=== PATIENT | female | born 1950 | race Caucasian/White ===

== ENCOUNTER 2019-04-20 11:06 | Emergency (ER) | payer OTHER ==
[~2019-04-20] VITALS: Ht 167.6 cm; Wt 49.9 kg
[~2019-04-20 11:06] MED LIST: ZOFRAN4 MG ORAL
--- NOTE | 2019-04-20 11:30 | NUR ---
ED Nurse Note: Patient walked into ER due to body ache, migraine. AAO x4, VSS at this time skin is dry warm to touch.
[2019-04-20 11:35] VITALS: BP 163/80
[2019-04-20] MEDS ORDERED: Tylenol #3 tab (300mg/30mg) ORAL ONE (12:00)
[2019-04-20] MEDS ORDERED: FIORICET1 EA ORAL (12:43)
[2019-04-20] MEDS ORDERED: ACETAMINOPHEN-1 EAC1 ORAL (12:43)
[2019-04-20 12:52] VITALS: BP 163/80
--- NOTE | 2019-04-20 12:52 | NUR ---
ED Nurse Note: Pt cleared by health care Provider for discharge. DC instructions/prescription was given and explained to pt and verbalized understanding of teachings. All medical deviecs such as ID band removed. Pt is AAO x4, ambulatory and left with all personal belongings.
--- NOTE | 2019-04-22 15:11 | Emergency Room Report ---
History of Present Illness General Chief Complaint: General Complaint Source: Patient Present Illness HPI 68-year-old female presents ED for evaluation. Complaining of generalized body aches and migraine. States she has chronic history of body aches migraine. Has had multiple broken bones in the past. States that [place]. Does not have a PMD yet. States that she is looking for a new pain management doctor. Pain is throbbing, 7 out of 10, nonradiating. Denies photophobia or blurry vision. Denies nausea or vomiting. Denies any neck stiffness. No other aggravating relieving factors. Denies any other associated symptoms Allergies: Coded Allergies: ASPIRIN (Verified Allergy, Unknown, 04/20/19) IBUPROFEN (Verified Allergy, Unknown, 02/13/16) Patient History Past Medical History: HTN Past Surgical History: none Pertinent Family History: none Social History: Denies: smoking, alcohol use, drug use Now: No Immunizations: UTD Reviewed Nursing Documentation: PMH: Agreed; PSxH: Agreed Nursing Documentation-PMH Past Medical History: No History, Except For Hx Hypertension: Yes Review of Systems All Other Systems: negative except mentioned in HPI Physical Exam Vital Signs Date Time Temp Pulse Resp B/P (MAP) Pulse Ox O2 Delivery O2 Flow Rate FiO2 04/20/19 11:24 97.7 87 16 163/80 (107) 97 Room Air Sp02 EP Interpretation: reviewed, normal General Appearance: no apparent distress, alert, GCS 15, non-toxic Head: normocephalic, atraumatic Eyes: bilateral eye normal inspection, bilateral eye PERRL ENT: hearing grossly normal, normal pharynx, no angioedema, normal voice Neck: full range of motion, supple, no meningismus, supple/symm/no masses Respiratory: chest non-tender, lungs clear, normal breath sounds, speaking full sentences Cardiovascular #1: regular rate, rhythm, no edema Cardiovascular #2: 2+ carotid (R), 2+ carotid (L), 2+ radial (R), 2+ radial (L) , 2+ dorsalis pedis (R), 2+ dorsalis pedis (L) Gastrointestinal: normal bowel sounds, non tender, soft, non-distended, no guarding, no rebound Rectal: deferred Genitourinary: normal inspection, no CVA tenderness Musculoskeletal: back normal, gait/station normal, normal range of motion, non- tender Neurologic: alert, oriented x3, responsive, motor strength/tone normal, sensory intact, speech normal Psychiatric: judgement/insight normal, memory normal, mood/affect normal, no suicidal/homicidal ideation Reflexes: 3+ bicep (R), 3+ bicep (L), 3+ tricep (R), 3+ tricep (L), 3+ knee (R) , 3+ knee (L) Lymphatic: no adenopathy Medical Decision Making Homeless Attestation I, The treating physician Dr. Avina, have assessed and agrees that patient is medically stable for discharge to an outpatient disposition. Diagnostic Impression: Primary Impression: Chronic pain Qualified Codes: G89.29 - Other chronic pain Additional Impression: Migraine Qualified Codes: G43.909 - Migraine, unspecified, not intractable, without status migrainosus ER Course Hospital Course 68 yo F presents with headache, bodyaches Differential diagnoses include: tension headache, migraine, dehydration, intracranial bleed Clinical course Patient placed on stretcher. After initial history, exam reveals a elderly female in no acute distress. No nuchal rigidity. 5 out of 5 motor strength in all extremities. I reviewed cures and patient has multiple narcotic prescriptions filled. I explained this to the patient. Explained that I can provide her with a short course of Tylenol 3 and Fioricet. Patient states she does not have a PMD and will provide referrals. Homeless checklist completed i. I feel this is a highly complex case requiring extensive working including EKG/Rhythm strip, Xray/CT/US, Blood/urine lab work, repeat exams while in ED, and administration of strong opiates/narcotics for pain control, admission to hospital or close patient follow up. Diagnosis - chronic pain, migraine stable and discharged to home. f/up with PMD. return to ED if symptoms recur/ worsen. Last Vital Signs Date Time Temp Pulse Resp B/P (MAP) Pulse Ox O2 Delivery O2 Flow Rate FiO2 04/20/19 12:52 97.7 16 163/80 97 Room Air 04/20/19 11:35 87 Status: improved Disposition: HOME, SELF-CARE Condition: Stable Scripts Acetamin/Butalbital/Caffeine* (FIORICET*) 1 Ea Tab 1 TAB ORAL Q6H, #15 TAB 0 Refills Prov: Meliton Avina MD 04/20/19 Acetaminophen With Codeine (T#3) (TYLENOL #3 TAB*) Y Tab 1 TAB ORAL Q8H PRN for For Pain, #12 TAB Prov: Meliton Avina MD 04/20/19 Referrals: NOT CHOSEN IPA/,REFERRING [facility] Patient Instructions: Migraine Headache, [id number], Chronic Pain Meliton Avina MD Apr 22, 2019 15:11
== END 2019-04-20 12:52 | disposition home or self-care (01) ==
LOC: EMR 12:04
DX: G43.909 Migraine, unspecified, not intractable, without status migrainosus (principal); G89.29 Other chronic pain; I10 Essential (primary) hypertension; Z88.6 Allergy status to analgesic agent
CPT/HCPCS: 99282

== ENCOUNTER → 2019-05-06 | Emergency (ER) | payer MEDICARE, OTHER ==
[~2019-05-06] VITALS: Ht 157.5 cm; Wt 54.4 kg
[~2019-05-06] MED LIST changes: +ACETAMINOPHEN-1 EAC1 ORAL; +BENADRYL25 MG ORAL; +DiphenhydrAMINE 50mg/ml Inj IVP ONE; +FIORICET1 EA ORAL; +MAALOX MAXIMUM355 M1 PO; +Metoclopramide 10mg/2ml Inj IVP ONE; +REGLAN10 MG ORAL; +TYLENOL325 MG ORAL
--- NOTE | 2019-05-06 18:34 | Emergency Room Report ---
History of Present Illness General Chief Complaint: Abdominal Pain Source: Patient Present Illness HPI Patient is complaining about abdominal pain. This been going for day and a half. She states this happens when she runs out of pain medication. She has had some vomiting. There is no coffee grounds or blood. She denies any diarrhea at the moment. The pain is severe at this time. She has been evaluated multiple times for abdominal pain like this. She cannot tell me the diagnosis. She denies any fevers or chills. There is no dysuria. No sore throat, chest pain, palpitations, shortness of breath, joint pain, rashes, depression visual changes, headache. She walks with a walker. In the past she has had problems with pedal edema. Denies calf tenderness. She states she is having difficulty with her private physicians. She was evaluated here April 22. She was complaining about body aches and migraine. When evaluated it was found that she had multiple narcotic prescriptions. Short course of Tylenol No. 3 and Fioricet were prescribed. Allergies: Coded Allergies: ASPIRIN (Verified Allergy, Unknown, 04/20/19) IBUPROFEN (Verified Allergy, Unknown, 02/13/16) Patient History Past Medical History: see triage record, old chart reviewed Past Surgical History: other - Left hip surgery Social History: Reports: smoking Social History Narrative Homeless Last Menstrual Period: n/a Reviewed Nursing Documentation: PMH: Agreed; PSxH: Agreed Nursing Documentation-PMH Past Medical History: No History, Except For Hx Hypertension: Yes Review of Systems All Other Systems: negative except mentioned in HPI Physical Exam Vital Signs Date Time Temp Pulse Resp B/P (MAP) Pulse Ox O2 Delivery O2 Flow Rate FiO2 05/06/19 17:24 98.2 95 18 110/63 (79) 98 Room Air Sp02 EP Interpretation: reviewed, normal General Appearance: well appearing, no apparent distress - Anxious, GCS 15 Head: normocephalic, atraumatic Eyes: bilateral eye normal inspection, bilateral eye PERRL, bilateral eye EOMI ENT: normal pharynx, moist mucus membranes Neck: supple Respiratory: chest non-tender, lungs clear, normal breath sounds Cardiovascular #1: regular rate, rhythm, edema - Trace bilaterally Cardiovascular #2: 2+ radial (R) Gastrointestinal: normal inspection, normal bowel sounds, soft, no mass, non- distended, no guarding, no rebound, tenderness - Reported diffuse Genitourinary: no CVA tenderness Musculoskeletal: back normal, gait/station normal - With walker, normal range of motion, no calf tenderness Neurologic: alert, oriented x3, grossly normal Psychiatric: mood/affect normal - Slightly anxious, no suicidal/homicidal ideation Skin: other - Venous disease Medical Decision Making Homeless Attestation I, The treating physician Dr. Fernandez, have assessed and agree that patient is medically stable for discharge to an outpatient disposition. Diagnostic Impression: Primary Impression: Abdominal pain Qualified Codes: R10.84 - Generalized abdominal pain Additional Impressions: Chronic pain Qualified Codes: G89.29 - Other chronic pain Opiate dependence Qualified Codes: F11.29 - Opioid dependence with unspecified opioid-induced disorder Hypokalemia ER Course She presents with worsened epigastric and abdominal pain with a history of chronic abdominal pain. Differential includes acute myocardial infarctions, gastritis, pancreatitis, gastroenteritis, diverticulitis, UTI amongst others. The patient will be evaluated with EKG, chest x-ray, abdominal film and labs. At this time she has a nonsurgical abdomen. She will be treated with metoclopramide, Pepcid and Benadryl. She will also receive IV hydration. EKG no injury. Chest x-ray unremarkable. White count normal. Minimal anemia. Sodium minimally elevated. Potassium slightly low. Urinalysis clear. Tox screen positive for barbiturates. Patient sleeping with a soft abdomen. Discussed test findings with patient and the need to follow-up with her doctors. She is pressuring to get pain medication. No medical emergency at this time. Patient stable for outpatient observation and treatment. Laboratory Tests Test 05/06/19 18:23 05/06/19 19:24 White Blood Count 4.6 K/UL (4.8-10.8) L Red Blood Count 3.82 M/UL (4.20-5.40) L Hemoglobin 12.3 G/DL (12.0-16.0) Hematocrit 34.1 % (37.0-47.0) L Mean Corpuscular Volume 89 FL (80-99) Mean Corpuscular Hemoglobin 32.1 PG (27.0-31.0) H Mean Corpuscular Hemoglobin Concent 35.9 G/DL (32.0-36.0) Red Cell Distribution Width 10.6 % (11.6-14.8) L Platelet Count 281 K/UL (150-450) Mean Platelet Volume 5.6 FL (6.5-10.1) L Neutrophils (%) (Auto) 57.3 % (45.0-75.0) Lymphocytes (%) (Auto) 30.2 % (20.0-45.0) Monocytes (%) (Auto) 8.4 % (1.0-10.0) Eosinophils (%) (Auto) 2.8 % (0.0-3.0) Basophils (%) (Auto) 1.2 % (0.0-2.0) Prothrombin Time 11.1 SEC (9.30-11.50) Prothrombin Time INR 1.0 (0.9-1.1) PTT 28 SEC (23-33) Sodium Level 147 MMOL/L (136-145) H Potassium Level 3.1 MMOL/L (3.5-5.1) L Chloride Level 109 MMOL/L (98-107) H Carbon Dioxide Level 30 MMOL/L (21-32) Anion Gap 8 mmol/L (5-15) Blood Urea Nitrogen 12 mg/dL (7-18) Creatinine 0.8 MG/DL (0.55-1.30) Estimate Glomerular Filtration Rate > 60 mL/min (>60) Glucose Level 91 MG/DL (74-106) Calcium Level 8.2 MG/DL (8.5-10.1) L Total Bilirubin 0.4 MG/DL (0.2-1.0) Aspartate Amino Transferase (AST) 54 U/L (15-37) H Alanine Aminotransferase (ALT) 38 U/L (12-78) Alkaline Phosphatase 193 U/L (46-116) H Troponin I 0.000 ng/mL (0.000-0.056) Total Protein 7.0 G/DL (6.4-8.2) Albumin 3.0 G/DL (3.4-5.0) L Globulin 4.0 g/dL Albumin/Globulin Ratio 0.8 (1.0-2.7) L Lipase 178 U/L (73-393) Serum Alcohol < 3 mg/dL Urine Color Pale yellow Urine Appearance Clear Urine pH 8 (4.5-8.0) Urine Specific [place] 1.010 (1.005-1.035) Urine Protein 1+ (NEGATIVE) H Urine Glucose (UA) Negative (NEGATIVE) Urine Ketones Negative (NEGATIVE) Urine Blood Negative (NEGATIVE) Urine Nitrite Negative (NEGATIVE) Urine Bilirubin Negative (NEGATIVE) Urine Urobilinogen Normal MG/DL (0.0-1.0) Urine Leukocyte Esterase 1+ (NEGATIVE) H Urine RBC 0-2 /HPF (0 - 2) Urine WBC 0-2 /HPF (0 - 2) Urine Squamous Epithelial Cells Few /LPF (NONE/OCC) Urine Bacteria Few /HPF (NONE) Urine Opiates Screen Negative (NEGATIVE) Urine Barbiturates Screen Positive (NEGATIVE) H Phencyclidine (PCP) Screen Negative (NEGATIVE) Urine Amphetamines Screen Negative (NEGATIVE) Urine Benzodiazepines Screen Negative (NEGATIVE) Urine Cocaine Screen Negative (NEGATIVE) Urine Marijuana (THC) Screen Negative (NEGATIVE) EKG Diagnostic Results Rate: normal Rhythm: NSR ST Segments: no acute changes Rhythm Strip Diag. Results EP Interpretation: yes Rhythm: NSR, no PVC's, no ectopy Chest X-Ray Diagnostic Results Chest X-Ray Diagnostic Results : Chest X-Ray Ordered: Yes # of Views/Limited/Complete: 1 View Indication: Other EP Interpretation: Yes Interpretation: no consolidation, no effusion, no pneumothorax Impression: No acute disease Electronically Signed by: Electronically signed by Taye Fernandez MD Other X-Ray Diagnostic Results Other X-Ray Diagnostic Results : X-Ray ordered: Abdomen # of Views/Limited Vs Complete: 2 View Indication: Pain EP Interpretation: Yes Interpretation: nonspecific bowel gas, no sbo, other - Left hip surgery Impression: Other Electronically Signed by: Electronically signed by Taye Fernandez MD Last Vital Signs Date Time Temp Pulse Resp B/P (MAP) Pulse Ox O2 Delivery O2 Flow Rate FiO2 05/06/19 21:50 98.2 85 20 112/80 99 Room Air Status: improved Disposition: HOME, SELF-CARE - Homeless Condition: Improved Scripts Mag Hydrox/Al Hydrox/Simeth (MAALOX MAXIMUM STRENGTH SUSP) 355 Ml Oral.susp 30 ML PO Q6HR, #240 ML Prov: Taye Fernandez MD 05/06/19 Acetaminophen (Tylenol) 325 Mg Tablet 650 MG ORAL Q6H PRN for Prn Pain/Headache/Temp > 101, #20 TAB 0 Refills Prov: Taye Fernandez MD 05/06/19 Diphenhydramine Hcl* (BENADRYL*) 25 Mg Capsule 25 MG ORAL Q6H PRN for Itching, #20 CAP Prov: Taye Fernandez MD 05/06/19 Metoclopramide Hcl* (REGLAN*) 10 Mg Tablet 10 MG ORAL THREE TIMES A DAY, #20 TAB Prov: Taye Fernandez MD 05/06/19 Taye Fernandez MD May 06, 2019 18:34
[2019-05-06 18:37] VITALS: BP 115/62
[2019-05-06 19:00] LABS: BASOPHILS % (AUTO) 1.2 % (0.0-2.0); EOSINOPHILS % (AUTO) 2.8 % (0.0-3.0); HEMATOCRIT 34.1 % (37.0-47.0); HEMOGLOBIN 12.3 G/DL (12.0-16.0); LYMPHOCYTES % (AUTO) 30.2 % (20.0-45.0); MEAN CORPUSCULAR VOLUME 89 FL (80-99); MONOCYTES % (AUTO) 8.4 % (1.0-10.0); NEUTROPHILS % (AUTO) 57.3 % (45.0-75.0); PLATELET COUNT 281 K/UL (150-450); RED BLOOD COUNT 3.82 M/UL (4.20-5.40); RED CELL DISTRIBUTION WIDTH 10.6 % (11.6-14.8); WHITE BLOOD COUNT 4.6 K/UL (4.8-10.8)
[2019-05-06 19:05] LABS: ANION GAP 8 mmol/L (5-15); BLOOD UREA NITROGEN 12 mg/dL (7-18); CALCIUM 8.2 MG/DL (8.5-10.1); CARBON DIOXIDE 30 MMOL/L (21-32); CHLORIDE 109 MMOL/L (98-107); CREATININE 0.8 MG/DL (0.55-1.30); POTASSIUM 3.1 MMOL/L (3.5-5.1); SODIUM 147 MMOL/L (136-145)
[2019-05-06 19:09] LABS: ALANINE AMINOTRANSFERASE 38 U/L (12-78); ALBUMIN/GLOBULIN RATIO 0.8 (1.0-2.7); ALKALINE PHOSPHATASE 193 U/L (46-116); ASPARTATE AMINO TRANSFERASE 54 U/L (15-37); BILIRUBIN,TOTAL 0.4 MG/DL (0.2-1.0)
[2019-05-06 19:21] VITALS: BP 118/70
[2019-05-06 19:45] LABS: APPEARANCE,URINE CLEAR; BILIRUBIN, URINE NEGATIVE (NEGATIVE); COLOR,URINE PALE YELLOW; GLUCOSE, URINE (UA) NEGATIVE (NEGATIVE); KETONES,URINE NEGATIVE (NEGATIVE); LEUKOCYTE ESTERASE ,URINE 1+ (NEGATIVE); NITRITE,URINE NEGATIVE (NEGATIVE); PH,URINE 8 (4.5-8.0); PROTEIN,URINE 1+ (NEGATIVE); UROBILINOGEN,URINE NORMAL MG/DL (0.0-1.0)
[2019-05-06 21:50] VITALS: BP 112/80
--- NOTE | 2019-05-07 12:29 | Diagnostic Imaging Report ---
Indication: Dyspnea Comparison: None A single view chest radiograph was obtained. Findings: Cardiomediastinal appearance is within normal limits for age. The lungs are clear. Pulmonary vascularity is appropriate. The diaphragmatic contour is smooth and costophrenic angles are sharp. No pleural effusions are identified. The bones are osteopenic. There is partially visualized hardware in the left humerus. Impression: No acute findings
--- NOTE | 2019-05-07 12:29 | Diagnostic Imaging Report ---
Indication: Abdominal pain Comparison: None Single view of the abdomen obtained Findings: Bowel gas pattern is nonspecific. No mass, ectopic calcifications, or abnormal gas collections are identified. The bones are osteopenic. There is a left dynamic hip screw. Impression: No acute findings
--- NOTE | 2019-05-09 13:15 | Cardiology Report ---
APPROVED REPORT EKG Measurement Heart [id number] Normal sinus rhythm Normal ECG
== END | disposition home or self-care (01) ==
LOC: EMR 18:30
DX: R10.84 Generalized abdominal pain (principal); G89.29 Other chronic pain; F11.29 Opioid dependence with unspecified opioid-induced disorder; E87.6 Hypokalemia; Z88.6 Allergy status to analgesic agent; Z88.8 Allergy status to other drugs, medicaments and biological substances; F17.200 Nicotine dependence, unspecified, uncomplicated; Z59.0 Homelessness
CPT/HCPCS: 36415; 71045; 74018; 80053; 80307; 80329; 81003; 83690; 84484; 85025; 85610; 85730; 93005; 96361; 96374; 96375; 99284; J2765

== ENCOUNTER 2019-06-06 14:12 | Emergency (ER) | payer MEDICARE, MEDICAID ==
[~2019-06-06] VITALS: Ht 160 cm; Wt 52.2 kg
[~2019-06-06 14:12] MED LIST changes: -DiphenhydrAMINE 50mg/ml Inj IVP ONE; -Metoclopramide 10mg/2ml Inj IVP ONE
[2019-06-06] MEDS ORDERED: NKM (14:21)
--- NOTE | 2019-06-06 14:25 | NUR ---
ED Nurse Note: Patient walked into ED from the street, c/o weakness, and cannot function well without pain medications. patient is alert awake x4 ambulatory with her walker., breathing unlabored and even, speaking in full sentences.
[2019-06-06] MEDS ORDERED: ACETAMINOPHEN-1 EAC1 ORAL (14:36)
--- NOTE | 2019-06-06 14:37 | Emergency Room Report ---
History of Present Illness General Chief Complaint: General Complaint Source: Patient Present Illness HPI 68-year-old female history of chronic pain but ran out of her opioid medication , she states she is trying to set up long-term care, she states it is difficult to hold her bowels in, she feels like she has a lot of generalized pain, her appetite has gone away because she no longer has any more Tylenol threes. She is requesting a short-term prescription, until she sits up long-term care, she denies any chest pain shortness of breath. Allergies: Coded Allergies: ASPIRIN (Verified Allergy, Unknown, 04/20/19) IBUPROFEN (Verified Allergy, Unknown, 02/13/16) Patient History Past Medical History: see triage record Reviewed Nursing Documentation: PMH: Agreed; PSxH: Agreed Nursing Documentation-PMH Hx Hypertension: Yes Review of Systems All Other Systems: negative except mentioned in HPI Physical Exam Vital Signs Date Time Temp Pulse Resp B/P (MAP) Pulse Ox O2 Delivery O2 Flow Rate FiO2 06/06/19 14:18 98.1 107 19 128/71 (90) 100 Room Air Sp02 EP Interpretation: reviewed, normal General Appearance: well appearing, no apparent distress, alert Head: normocephalic, atraumatic Eyes: bilateral eye PERRL, bilateral eye EOMI ENT: uvula midline, moist mucus membranes Neck: supple, thyroid normal, supple/symm/no masses Respiratory: lungs clear, no respiratory distress, no retraction, no accessory muscle use Cardiovascular #1: normal peripheral pulses, regular rate, rhythm, no edema, no gallop, no murmur, other - Not tachycardic on my exam Gastrointestinal: non tender, soft, no guarding, no rebound Musculoskeletal: normal inspection Neurologic: alert, oriented x3 Psychiatric: mood/affect normal Skin: no rash, warm/dry Medical Decision Making Diagnostic Impression: Primary Impression: Encounter for generalized patient complaints Additional Impression: Chronic pain Qualified Codes: G89.29 - Other chronic pain ER Course 68-year-old female presents with chronic pain, counseled patient that we can provide her a short-term prescription, cures report shows that she gets Fioricet. No recent pain med prescription Will provide patient with a list of clinics where she can follow-up, counseled patient disposition home with return precautions Last Vital Signs Date Time Temp Pulse Resp B/P (MAP) Pulse Ox O2 Delivery O2 Flow Rate FiO2 06/06/19 14:18 98.1 107 19 128/71 (90) 100 Room Air Disposition: HOME, SELF-CARE Condition: Stable Scripts Acetaminophen With Codeine (T#3) (TYLENOL #3 TAB*) Y Tab 1 TAB ORAL Q8H PRN for For Pain, #12 TAB Prov: Kanu Corrigan MD 06/06/19 Referrals: [facility]. [facility] Patient Instructions: Chronic Pain Additional Instructions: The patient was provided with discharge instructions, notified to follow-up with a primary care doctor and or specialist in the next 24-48 hours, and to return to the ED if they have worsening of their symptoms. Please note that this report is being documented using [employer] technology. This can lead to erroneous entry secondary to incorrect interpretation by the dictating instrument. Kanu Corrigan MD Jun 06, 2019 14:37
[2019-06-06] MEDS ORDERED: Tylenol #3 tab (300mg/30mg) ORAL ONE (14:45)
[2019-06-06 15:01] VITALS: BP 128/75
[2019-06-06 15:14] VITALS: BP 128/75
--- NOTE | 2019-06-06 15:14 | NUR ---
Homeless Discharge: Patient is being discharged from medical care.Patient is cleared to be discharged per DR BONITA BAER Awake, alert and oriented x4. After care instructions, including referral to community resources were given, patient declined to state where she is going, patient reports she has a place she stays. patient declined for RN's offer to bring medication for her, patient reports she has a pharmacy she goes to [facility] and she prefers to get medications from there. Patient verbalized understanding of After care instructions; patient provided with sandwich, water, juice. at this time patient does not equipment or placement. Patient signed patient consent in the medical record for patient destination upon discharge. All medical devices such ID band were removed. Patient ambulated out with all personal belongings with steady gait. patient is wearing weather appropriate clothings with jackets, patient left with her walker, patient reports she got here by bus and she will go back to her place by bus.
== END 2019-06-06 15:14 | disposition home or self-care (01) ==
LOC: EMR 14:40
DX: G89.29 Other chronic pain (principal); I10 Essential (primary) hypertension; Z88.6 Allergy status to analgesic agent; Z88.8 Allergy status to other drugs, medicaments and biological substances; Z79.891 Long term (current) use of opiate analgesic
CPT/HCPCS: 99282

== ENCOUNTER 2019-07-17 10:58 | Emergency (ER) | payer MEDICARE, MEDICAID ==
[~2019-07-17] VITALS: Ht 167.6 cm; Wt 52.2 kg
[~2019-07-17 10:58] MED LIST changes: +NKM
[2019-07-17 11:30] VITALS: BP 128/77
--- NOTE | 2019-07-17 11:36 | Emergency Room Report ---
History of Present Illness General Chief Complaint: Abdominal Pain Source: Patient Present Illness HPI Patient presents initially complaining of lower abdominal discomfort however after further discussion reports that she has chronic lower abdominal pain however has ran out of her pain medications which include Tylenol 3 Denies any fevers denies any chest pain Denies any back or flank pain Denies any blood in the stool Allergies: Coded Allergies: ASPIRIN (Verified Allergy, Unknown, 04/20/19) IBUPROFEN (Verified Allergy, Unknown, 02/13/16) Patient History Past Medical History: see triage record Reviewed Nursing Documentation: PMH: Agreed; PSxH: Agreed Nursing Documentation-PMH Hx Cardiac Problems: Yes - ARTHRITIS Hx Hypertension: Yes Hx Pacemaker: No Hx Asthma: No Hx COPD: No Hx Diabetes: No Hx Cancer: No Hx Gastrointestinal Problems: No Hx Dialysis: No History Of Psychiatric Problem: Yes - Depression Hx Neurological Problems: Yes - HERNIATED DISC, SPINAL STENOSIS Hx Cerebrovascular Accident: No Hx Seizures: No Review of Systems All Other Systems: negative except mentioned in HPI Physical Exam Vital Signs Date Time Temp Pulse Resp B/P (MAP) Pulse Ox O2 Delivery O2 Flow Rate FiO2 07/17/19 11:10 98.2 88 16 128/77 (94) 96 Room Air Sp02 EP Interpretation: reviewed, normal General Appearance: well appearing, no apparent distress Head: normocephalic, atraumatic Eyes: bilateral eye PERRL, bilateral eye EOMI ENT: hearing grossly normal, EOM grossly intact Neck: supple Respiratory: lungs clear, no respiratory distress, no retraction Cardiovascular #1: regular rate, rhythm Gastrointestinal: non tender, soft Musculoskeletal: normal inspection Neurologic: alert, oriented x3 Psychiatric: normal inspection Skin: no rash Lymphatic: no adenopathy Medical Decision Making Diagnostic Impression: Primary Impression: abdominal pain Additional Impression: diarrhea ER Course Given the exam and presentation given the complaints multiple differentials are in consideration including but not limited to colitis diverticulitis,, other intra-abdominal emergencies Patient however has very significant chronicity to her presentation After discussion now also requesting further [place] or Tylenol 3 Patient is recommended to follow with her primary physician and possible GI referral as needed Last Vital Signs Date Time Temp Pulse Resp B/P (MAP) Pulse Ox O2 Delivery O2 Flow Rate FiO2 07/17/19 11:10 98.2 88 16 128/77 (94) 96 Room Air Status: unchanged Disposition: HOME, SELF-CARE Condition: Stable Referrals: Jose Burch MD Patient Instructions: Abdominal Pain, Adult, Diarrhea, Adult, [id number] Additional Instructions: Patient is provided with the discharge instructions notified to follow up with primary doctor in the next 2-3 days otherwise return to the er with any worsening symptoms. Please note that this report is being documented using [employer] technology. This can lead to erroneous entry secondary to incorrect interpretation by the dictating instrument. Ed Norwood DO Jul 17, 2019 11:36
[2019-07-17 12:10] VITALS: BP 128/77
== END 2019-07-17 12:12 | disposition home or self-care (01) ==
LOC: EMR 11:45
DX: R10.30 Lower abdominal pain, unspecified (principal); R19.7 Diarrhea, unspecified; M48.00 Spinal stenosis, site unspecified; I10 Essential (primary) hypertension; Z88.6 Allergy status to analgesic agent
CPT/HCPCS: 99281